=== PATIENT | female | born 1950 | race Caucasian/White ===

== ENCOUNTER → 2019-05-25 09:00 | Outpatient (BNVA) | payer MEDICARE, MEDICAID, SELFPAY | PROVIDERS: Family Provider Nurse Practitioner; PCP Nurse Practitioner; Visit Provider Nurse Practitioner | DX: R10.9 Unspecified abdominal pain (principal); I10 Essential (primary) hypertension; R50.9 Fever, unspecified; M79.7 Fibromyalgia; E78.2 Mixed hyperlipidemia; N39.0 Urinary tract infection, site not specified | CPT/HCPCS: 80053; 81001; 85025; 87086; 87804 ==

== ENCOUNTER 2019-10-14 19:13 | Emergency (ER) | payer MEDICARE, MEDICAID, SELFPAY ==
[2019-10-14 19:57] VITALS: BP 140/83; PULSE 67; RESP 18; TEMP 36.8; O2SAT 95; BMI 37.8
--- NOTE | 2019-10-14 21:48 | XRR_ITS ---
PROCEDURE INFORMATION: Exam: XR Left Wrist Exam date and time: 10/14/2019 10:02 PM Age: 69 years old Clinical indication: Injury or trauma; Fall; Initial encounter; Blunt trauma (contusions or hematomas; Wrist; Bilateral TECHNIQUE: Imaging protocol: XR Left wrist. Views: 3 or more views. COMPARISON: No relevant prior studies available. FINDINGS: Bones/joints: Osteoporosis. Scapholunate disassociation. Impacted comminuted intra-articular fracture of the distal left radius. Mild volar angulation. Dorsal and radial displacement of the radial styloid component of the fracture. Ulnar styloid avulsion fracture. Soft tissues: Soft tissue swelling. XR/XR wrist LT min 3V* [id number] IMPRESSION: 1. Impacted comminuted intra-articular fracture of the distal left radius. 2. Ulnar styloid avulsion fracture. 3. Scapholunate disassociation. 4. Osteoporosis.
--- NOTE | 2019-10-14 21:50 | ED_ITS ---
HPI - Extremity Problem General: Chief complaint: Extremity Injury, Upper Stated complaint: LEFT WRIST PAIN/FALL Time Seen by Provider: 10/14/19 21:48 Source: patient Mode of arrival: ambulatory Limitations: no limitations History of Present Illness: HPI Narrative: Patient was leaving the garage and missed a step while carrying packages. Patient landed catching self with outst retched left arm. Patient has distal left forearm pain. Mild deformity is noted to the left distal wrist area. MD Complaint: extremity pain Review of Systems General: Reports: 10 or more systems reviewed and unremarkable except in HPI and below Musc: Reports: extremity pain and extremity swelling [facility] ED PFSH: Medical History (Updated 10/14/19 @ 22:09 by SARAY Felder) Fibromyalgia Hypertension Mixed hyperlipidemia Situational anxiety Surgical History (Updated 05/25/19 @ 09:12 by MARCELLUS Samaniego) H/O: hysterectomy (~1984) History of cholecystectomy (~1986) History of hernia repair Family History (Updated 05/25/19 @ 09:14 by MARCELLUS Samaniego) Mother Dementia Sister Hypothyroid Brother Cancer colon and blood Social History (Updated 05/25/19 @ 08:40 by OVIDIO Sim) Smoking and tobacco status: former smoker Second hand smoke exposure: No Smoking risk assessment/counseling performed?: No Alcohol intake: never Desire information about alcohol rehabilitation?: No Counseling given: No Desire information about substance/drug rehabilitation?: No Counseling given: No Caregiver/support person: No Lives independently: Yes Household members: spouse Marital status: Current occupational status: retired History of recent travel: No Current gender identity: Female Physical Exam Const: COMMON NORMALS: no acute distress and patient oriented x3 GENERAL APPEARANCE: cooperative HENMT: COMMON NORMALS: normocephalic and Normal external nose present HEAD & SCALP: normal to inspection and normocephalic NOSE: Normal external nose present MOUTH: Normal oral and palatal mucosa present Eye: GENERAL EYE: appearance normal, both eyes and all related structures Neck/C-Spine: COMMON NORMALS: full ROM Chest: COMMONS NORMALS: normal inspection of the chest Resp: COMMON NORMALS: normal respiratory effort EFFORT & INSPECTION: Yes able to speak in complete sentences Cardio: COMMON NORMALS: regular rate and regular rhythm RATE: regular rate RHYTHM: regular rhythm GI: COMMON NORMALS: non-tender Back/Pelvis: COMMON NORMALS: thoracic and lumbar spine normal to inspection Extremity: NARRATIVE EXTREMITY EXAM: Patient has mild deformity to the distal forearm and left wrist. Pulses are intact. Prompt capillary refill is noted. Patient has good range of motion of the fingers of the left hand. Patient has good sensation in the distal fingertips. Neuro: COMMON NORMALS: patient oriented x3 and moves all extremities Psych: COMMON NORMALS: mental status grossly normal and cooperative Skin: COMMON NORMALS: no rashes or lesions noted GENERAL SKIN EXAM: no rashes or lesions noted Procedures Orthopedic Splinting/Casting Injury #1: Side: left Upper Extremity Injury Location: wrist Upper Extremity Immobilizer: sling/shoulder immobilizer and sugar tong splint Course Vital Signs: Vital signs: Vital Signs Temperature 98.3 F 10/14/19 19:57 Pulse Rate 67 10/14/19 19:57 Respiratory Rate 18 10/14/19 19:57 Blood Pressure 140/83 10/14/19 19:57 Pulse Oximetry 95 10/14/19 19:57 MDM - Extremity (Nontraumatic) MDM Narrative: Medical decision making narrative: Patient comes in today for complaints of injury to the left wrist. On exam we note deformity to the distal forearm of the rest upper extremity. Pulses are intact. Skin is warm and dry. Prompt capillary refill is been noted. Vital signs are normal. Differential diagnosis includes contusion, fracture, sprain. X-ray notes a comminuted distal radial fracture and a fracture of the ulnar styloid. Reviewed exam recommended patient be placed in a sugar tong splint for stabilization of the fracture with follow-up with orthopedics for further evaluation and treatment. Patient reports understanding agreed to plan. Discharge Plan Discharge Patient Disposition: Home, Self-Care Clinical Impression: Fracture of wrist Qualifiers: Encounter type: initial encounter Fracture type: closed Laterality: left Qualified Code(s): S62.102A - Fracture of unspecified carpal bone, left wrist, initial encounter for closed fracture Condition: Stable Prescriptions: New hydrocodone-acetaminophen 5-325 mg tablet 1 tab PO Q6H PRN (Reason: pain, severe) Qty: 14 RF: 0 No Action aspirin [Adult Aspirin Regimen] 81 mg tablet,delayed release (DR/EC) 81 mg PO DAILY RF: 0 furosemide 20 mg tablet 20 mg PO BID PRN (Reason: edema) Qty: 180 RF: 1 magnesium oxide 400 mg magnesium capsule 400 mg PO BID Qty: 180 RF: 1 metoprolol succinate 50 mg tablet extended release 24 hr 50 mg PO DAILY Qty: 90 RF: 1 potassium chloride 10 mEq tablet extended release 10 meq PO DAILY Qty: 90 RF: 1 tizanidine 2 mg capsule 2 mg PO .QHS PRN (Reason: muscle spasticity) Qty: 90 RF: 1 tramadol 50 mg tablet 50 mg PO Q6H PRN (Reason: pain) Qty: 90 RF: 5 simvastatin [Zocor] 20 mg tablet 20 mg PO DAILY Qty: 90 RF: 1 cephalexin [Keflex] 500 mg capsule 500 mg PO TID Qty: 30 RF: 0 Referrals: Rica Maddox FNP-C [Primary Care Provider] - Discharge Diet: Usual diet Discharge Activity: Increase activity as tolerated Patient Instructions: Splint Care (ED) Activity Restrictions/Additional Instructions: Keep splint clean and dry. Leave splint in place. Use sling for comfort. Follow-up with primary care in 1 week. Follow-up with orthopedist for further treatment and management of fracture. Return to the ER for worsening pain or new concerns. Discharge Date/Time: 10/14/19 22:51 Coding Level of Care Code ED Residential [employer] Executive for Hilda Gutiérrez Exam Comprehensive
[2019-10-14] MEDS: HYDROcodone-acetaminophen 7.5-325 mg Tablet 1 TAB PO (22:00)
== END 2019-10-14 22:51 | disposition home or self-care (01) ==
PROVIDERS: Emergency Provider Nurse Practitioner Family; PCP Nurse Practitioner
DX: S52.572A Other intraarticular fracture of lower end of left radius, initial encounter for closed fracture (principal); S52.612A Displaced fracture of left ulna styloid process, initial encounter for closed fracture; W01.0XXA Fall on same level from slipping, tripping and stumbling without subsequent striking against object, initial encounter; I10 Essential (primary) hypertension; E78.2 Mixed hyperlipidemia; Z87.891 Personal history of nicotine dependence
CPT/HCPCS: 12345; 29125; 73110; 99281; 99283

== ENCOUNTER 2019-10-18 14:22 | Outpatient (CLI) | payer MEDICARE, MEDICAID, SELFPAY | END 2019-10-18 14:23 | disposition home or self-care (01) | LOC: SPT 14:24 | PROVIDERS: PCP Nurse Practitioner; Visit Provider Orthopaedic Surgery | DX: Z46.89 Encounter for fitting and adjustment of other specified devices (principal); S52.592D Other fractures of lower end of left radius, subsequent encounter for closed fracture with routine healing; X58.XXXD Exposure to other specified factors, subsequent encounter | CPT/HCPCS: 97760; L3908 ==

== ENCOUNTER 2019-10-19 13:09 | Day surgery (SDC) | payer MEDICARE, MEDICAID, SELFPAY ==
[2019-10-18 15:23] VITALS: BMI 37.5
[2019-10-19] VITALS (8 sets, daily range): BP systolic 107–153; BP diastolic 66–94; PULSE 59–65; RESP 15–20; TEMP 36.8; O2SAT 95–99
--- NOTE | 2019-10-19 | SCC_ITS ---
Procedure Done: Open reduction internal fixation left distal radius, 3 articular fragments 109.8 seconds of fluoroscopic guidance, for a cumulative dose of 1.73 mGy, was provided to Dr. Jennings by the radiology department. C-arm images of the LEFT wrist were saved for the patient's permanent record. [facility]
--- NOTE | 2019-10-19 | XR_ITS ---
WS: [id number] C-ARM RADIOGRAPHS LEFT WRIST; 3 IMAGES HISTORY: ORIF LT WRIST MAREK IMAGES COMPARISON: 10/14/2011 Intraoperative imaging during plate and screw fixation distal radial fracture. Reduction of the fract ure displacement in good alignment. XR/XR wrist LT 2V [id number] IMPRESSION: Intraoperative imaging during ORIF distal radial fracture in good position and alignment.
--- NOTE | 2019-10-19 13:43 | W.PM.OPSUD ---
Surgery/Procedure H&P Update DATE OF PROCEDURE: October 19, 2019 DATE H&P PERFORMED: 10/18/19 PREOP DIAGNOSIS: Left distal radius PLANNED PROCEDURE: Operation Date: 10/19/19 14:40 Proposed Procedures p ORIF Wrist [id number] S52.502A(Left) - Gurwinder Jennings MD
[2019-10-19] MEDS: sodium chloride 0.9% 1,000 ML 30 ML IV (13:58)
[2019-10-19] MEDS: fentaNYL 50 mcg/mL INJ 2mL 100 MCG IVP (14:13)
[2019-10-19] MEDS: midazolam 1 mg/mL INJ 2 mL 2 MG IVP (14:15)
--- NOTE | 2019-10-19 14:24 | ANES.PREANE2 ---
Pre-Anesthetic Assessment Pre-Anesthetic Assessment: Height/Weight: Height 1.63 m Weight 99.337 kg Temp Pulse Resp BP Pulse Ox 98.3 F 60 18 141/83 95 10/19/19 13:40 10/19/19 13:40 10/19/19 13:40 10/19/19 13:40 10/19/19 13:40 Preop Diagnosis: Left distal radius Proposed Procedure: Operation Date: 10/19/19 14:40 Proposed Procedures p ORIF Wrist 21775 S52.502A(Left) - Gurwinder Jennings MD Social: Social History: Tobacco (quit) and No alcohol Exam: Pre-Anes Outpt Exam: alert, oriented x 3, clear to auscultation bilaterally and regular rate & rhythm Airway: Submandibular: WNL Cervical ROM: WNL MP: 2 Dentition: Partials (upper) History/ROS: No significant history except as noted Pulmonary: Pulmonary: None reported CV/HEM: CV/HEM: HTN : : None reported Hepatic: Hepatic: None reported GI: GI: None reported Metabolic: Metabolic: Hyperlipidemia and Morbid obesity Musc/skel: Musc/skel: Fibromyalgia Neuropsych: Neuropsych: Anxiety and Depression Anesthetic Plan: ASA status: 2 Anesthesia: Anesthesia Evaluation, Eval. for regional block, General, MAC and Regional (specify below) (left axillary) Risk of > 500 ml blood loss (7ml/kg in children): No Meds/Allergies Current Medications: Current Medications Generic Name Dose Route Start Last Admin Trade Name Freq PRN Reason Stop Dose Admin Sodium Chloride 1,000 mls @ 30 ml s/hr 10/19/19 10:00 10/19/19 13:58 Sodium Chloride 0.9% IV 10/20/19 09:59 30 mls/hr .Q24H NAI Administration PFSH Anesthesia PFSH: Medical History Fibromyalgia Hypertension Mixed hyperlipidemia Situational anxiety Surgical History H/O: hysterectomy (~1984) History of cholecystectomy (~1986) History of hernia repair Family History Mother Dementia Sister Hypothyroid Brother Cancer colon and blood Social History Smoking and tobacco status: former smoker Second hand smoke exposure: No Smoking risk assessment/counseling performed?: No Alcohol intake: never Desire information about alcohol rehabilitation?: No Counseling given: No Desire information about substance/drug rehabilitation?: No Counseling given: No Caregiver/support person: No Lives independently: Yes Household members: spouse Marital status: Current occupational status: retired History of recent travel: No Current gender identity: Female Data Anesthesia Cardiac Studies: No Data to Display
--- NOTE | 2019-10-19 14:26 | ANES.PROC ---
Anesthesia Procedures Procedure/Date: 10/19/19 Nerve Block ^: Nerve Block 1: Main Anesthesia: general anesthesia Time Out Performed: Yes Consent: requested by attending/covering physician, risks and benefits reviewed and patient agrees to proceed Nerve block location: axillary (left) Anesthesia monitors applied: pulse oximetry, EKG, BP cuff and oxygen Nerve block position: semi sitting Anesthetic Used: ropivicaine 0.5% and with decadron (4 mg) Amount of anesthesia used (mL): 30 Ultrasound used to: recognize landmarks Nerve Stimulator Used?: Yes Interscalene/Femoral BLK: 2 stimuplex 22 g needle used for position and inplane approach, visualize local anesthetic spread and no vascular puncture identified Injection: neg aspiration of heme Patient Tolerated Procedure: well and no complications Complications: none
--- NOTE | 2019-10-19 17:30 | PM.OP ---
Operative Report Date of procedure: October 19, 2019 Pre-op Diagnosis: Left distal radius fracture Post-op diagnosis: same Post-op Findings: Patient had a comminuted intra-articular fracture of the left distal radius consisting of radial articular fragment Procedure Done: Open reduction internal fixation left distal radius, 3 articular fragments Implants: Irrigon Variax short standard distal radius plate Pathology: none sent Anesthesia: General and Nerve Block (Axillary) Estimated blood loss (mL): 20 IV fluids (mL): 51 Findings: Patient had a comminuted intra-articular fracture of the distal radius consisting of a volar and dorsal lunate facet fragment and a radial styloid fragment. Condition: stable Disposition: PACU Procedure: After the patient was given an axillary nerve block. She was taken to the operating room and given a general anesthesia. Under visualization of fluoroscopy, longitudinal traction was applied to get a better appreciation of anatomy. The fracture appeared to consist of 3 fragments of a dorsal and volar lunate facet fragment and a radial styloid fragment . the patient left arm was exposed on a fracture table the patient prepped and draped in the usual fashion. She was given 2 g of Ancef. A timeout was performed. A 5 cm long incision was made along over the flexor carpi radialis tendon. Dissection was carried down through the tendon sheath. Dissection was carried down bluntly to the pronator quadratus. The pronator quadratus was elevated off of the distal radius leaving a cuff for later repair. Closed reduction was accomplished of the distal radius. A Irrigon Variax 100 sure plate was applied and provided adequate coverage to ensure screws into the radial styloid. Initial application of the plate gave incomplete control of the volar lunate facet fragment. To 0.8 mm K wires were driven across the teardrop on the lateral projection and used to joystick the teardrop into a more anatomical position correcting depression of the lunate facet. Once it was found that this could be accomplished the K wires were bent flush the distal radius and placed beneath the plate. The plate was fixed distally with 5 locking screws and proximally with 3 bicortical screws. Intraoperative imaging showed excellent position of the hardware. The wound was irrigated with saline. The pronator quadratus was reapproximated with 2-0 Vicryl. Subcutaneous tissues were closed with 2-0 Vicryl. The skin was closed with skin tana. Sterile dressings were applied. The patient was taken to outpatient surgery in stable condition.
== END 2019-10-19 18:21 | disposition home or self-care (01) ==
PROVIDERS: Visit Provider Orthopaedic Surgery
PROC: (CPT 25609; principal; 2019-10-19 14:40)
DX: S52.572A Other intraarticular fracture of lower end of left radius, initial encounter for closed fracture (principal); W01.0XXA Fall on same level from slipping, tripping and stumbling without subsequent striking against object, initial encounter; Z87.891 Personal history of nicotine dependence; I10 Essential (primary) hypertension; E66.01 Morbid (severe) obesity due to excess calories; Z68.37 Body mass index [BMI] 37.0-37.9, adult; M79.7 Fibromyalgia; E78.2 Mixed hyperlipidemia; Z79.82 Long term (current) use of aspirin
CPT/HCPCS: 25609; 12345; 73100; 76000; 96374; 96375; C1713; J0690; J1100; J1580; J1885; J2250; J2795; J3010; J7030

== ENCOUNTER → 2019-12-05 10:20 | Outpatient (BNVA) | payer MEDICARE, MEDICAID, SELFPAY | PROVIDERS: Visit Provider Orthopaedic Surgery | DX: S52.572A Other intraarticular fracture of lower end of left radius, initial encounter for closed fracture (principal); M18.11 Unilateral primary osteoarthritis of first carpometacarpal joint, right hand; X58.XXXA Exposure to other specified factors, initial encounter | CPT/HCPCS: 73110 ==

== ENCOUNTER 2020-01-11 06:00 | Outpatient (RCR) | payer MEDICARE, MEDICAID, SELFPAY | END 2020-01-11 23:59 | disposition home or self-care (01) | LOC: TOT 06:00 | PROVIDERS: Referring Provider Orthopaedic Surgery; Visit Provider Orthopaedic Surgery | DX: Z47.89 Encounter for other orthopedic aftercare (principal); S52.502D Unspecified fracture of the lower end of left radius, subsequent encounter for closed fracture with routine healing; X58.XXXD Exposure to other specified factors, subsequent encounter | CPT/HCPCS: 97110; 97166 ==

== ENCOUNTER 2020-01-19 16:32 | Outpatient (RCR) | payer MEDICARE, MEDICAID, SELFPAY | END 2020-02-11 23:59 | disposition home or self-care (01) | LOC: TOT 16:32 | PROVIDERS: Referring Provider Orthopaedic Surgery; Visit Provider Orthopaedic Surgery | DX: Z47.89 Encounter for other orthopedic aftercare (principal); S52.502A Unspecified fracture of the lower end of left radius, initial encounter for closed fracture | CPT/HCPCS: 97018; 97110; 97530 ==

== ENCOUNTER → 2020-02-06 09:48 | Outpatient (BNVA) | payer MEDICARE, MEDICAID, SELFPAY | PROVIDERS: PCP Family Medicine; Visit Provider Orthopaedic Surgery | DX: S52.502A Unspecified fracture of the lower end of left radius, initial encounter for closed fracture (principal); Z48.89 Encounter for other specified surgical aftercare; X58.XXXA Exposure to other specified factors, initial encounter | CPT/HCPCS: 73110 ==

== ENCOUNTER → 2020-04-16 13:11 | Outpatient (BNVA) | payer MEDICARE, MEDICAID, SELFPAY | PROVIDERS: PCP Family Medicine; Visit Provider Nurse Practitioner Family | DX: Z20.828 Contact with and (suspected) exposure to other viral communicable diseases (principal); J06.9 Acute upper respiratory infection, unspecified | CPT/HCPCS: 87635 ==

== ENCOUNTER 2020-04-20 12:44 | Outpatient (CLI) | payer MEDICARE, MEDICAID, SELFPAY ==
[2020-04-20 13:02] VITALS: BP 134/73; PULSE 65; RESP 16; TEMP 36.6; O2SAT 97; BMI 36.6
--- NOTE | 2020-04-20 13:09 | AMB.MCA ---
Patient Information Referred by: Ranjit Symptom onset date: 04/13/20 COVID 19 common symptoms: positive cough, non-productive cough, fatigue and body aches COVID 19 other sytmptoms: negative chest pressure, chest pain, pleuritic pain, requiring oxygen, requiring more oxygen, respiratory distress, cyanosis, lethargy, confusion or new neurological complaints Severity: moderate Treatment prior to arrival: none [facility] COVID test results: Nasal/Oral Coronavirus 2019 PCR Detected H 04/16/20 13:11 04/16/20 Criteria/Plan Inclusion/Exclusion Criteria weight >/= 40kg, + direct test </= 10 days ago and symptom onset </= 10 days ago age >/= 65, age >/= 55 and has hypertension and age >/= 55 and has diabetes not requiring hospitalization, not requiring oxygen (if not chronically on oxygen) and no increase oxygen requirement (if chronically on oxygen) Patient education patient/caregiver received/reviewed fact sheet, Emergency Use Authorization/unapproved drug status discussed with patient/caregiver, alternatives to this treatment discussed with patient/caregiver, risks and benefits of medication reviewed with patient/caregiver, patient/caregiver given opportunity for questions, which were answered and patient/caregiver consents to receiving Monoclonal Antibody Treatment Plan for treatment Meets criteria for Monoclonal Antibody infusion Ordering Monoclonal Antibody infusion for today
[2020-04-20 13:41] VITALS: BP 116/69; PULSE 61; RESP 17; TEMP 36.7; O2SAT 96
[2020-04-20 14:13] VITALS: BP 108/62; PULSE 55; RESP 18; O2SAT 95
[2020-04-20 15:19] VITALS: BP 115/73; PULSE 58; RESP 18; TEMP 36.7; O2SAT 97
[2020-04-20 15:29] VITALS: BP 115/73; PULSE 58; RESP 18; TEMP 36.7; O2SAT 97
--- NOTE | 2020-04-20 15:30 | PC.NURSE ---
1525 iv discontinues, catheter intact. pt experienced no new symptoms and was escorted to private vehicle by nursing staff. no concerns or complaints at this time.
--- NOTE | 2020-04-26 14:59 | DCPLANNER ---
Addendum entered by Jessica Raymond 05/01/20 15:25: energy and sustainability manager called to check on patient after receiving the BAM infusion. Patient stated that she was doing good, can't think of any side effects that she had. Patient also stated that she has not been admitted to the hospital anywhere. Original Note: energy and sustainability manager had message that patient received the BAM infusion. energy and sustainability manager called to check on patient after getting the infusion. Patient stated that she is feeling a lot better. Stated that before the infusion that she had a cough, some congestion, and was real tired. After the infusion that she no longer has a cough, just a little tired. But overall she is feeling a lot better
== END 2020-04-20 15:25 | disposition home or self-care (01) ==
PROVIDERS: PCP Family Medicine; Visit Provider Nurse Practitioner Family
DX: U07.1 COVID-19 (principal)
CPT/HCPCS: 96365; J7050

== ENCOUNTER 2020-12-12 08:00 | Outpatient (CLI) | payer MEDICARE, SELFPAY ==
[2020-12-12 08:14] VITALS: BMI 39.4
--- NOTE | 2020-12-12 08:23 | ECG_ITS ---
[facility] Test Date: 2020-12-12 Pat Name: Etelvina Barnes Department: Room: Gender: Female Hand Rug Cleaner: : 1950 Requested By: Hortensia Aden Order Number: [id number] Nilson MD: Hortensia Aden M.D. Interpretive Statements NAME OF STUDY: LEXISCAN SESTAMIBI STRESS TEST INDICATION: Chest Pain PROCEDURE: At the baseline, the blood pressure was 116/75 mmHg, oxygen saturation 97 percent with a heart rate of 61 bpm. The electrocardiogram showed normal sinus rhythm, normal axis with nonspecific ST changes.. The Lexiscan was infused over a period of 20 seconds. A total of 0.4 milligrams of Lexiscan was infused. The stress phase was continued for a total of 5 minutes. Heart rate at the end of the stress phase was 89 bpm, oxygen saturation 98% with a blood pressure of 112/69 mmHg. The EKG at the peak infusion revealed sinus rhythm with no significant ST-T wave changes. The study was terminated due to protocol completion. Sestamibi was injected 20 seconds after the Lexiscan infusion. Blood pressure at the end of the recovery phase was 114/71 mmHg, oxygen saturation 99% with a heart rate of 79 beats per minute. CONCLUSION: 1. No significant EKG changes with the LexiScan infusion. 2. No LexiScan induced chest pain or cardiac arrhythmia. 3. Normal blood pressure and heart rate response. 4. Sestamibi/sestamibi perfusion scan pending; see separate report. Electronically Signed On 12-19-2020 12:53:38 CDT by Hortensia Aden M.D. [id number]
--- NOTE | 2020-12-12 08:23 | NMCV_ITS ---
NM lissett perf SPECT r/s* [id number] Etelvina Barnes Age: 70 Gender: F : 1950 Exam Date: 12/12/2020 09:19 Ordering Phys: Hortensia Aden MD ([email or web address]) Technologist: LEELEE Mariscal Exam Location: [facility] Indications: CHEST PAIN STRESS TEST Please see separate stress test report in [facility] for full findings IMAGE PROTOCOL Rest/Stress 1 Lexiscan Day Radiopharmaceutical Dose (mCi) Administration Site Administered by Rest: Tc-99m 11.0 IV LEELEE Mariscal Sestamibi Stress:Tc-99m 30.6 IV LEELEE Mariscal Sestamibi Rest: 12-Dec-2020 60 Discovery 630 Stress: 12-Dec-2020 30 Discovery 630 0.4mg Lexiscan. Supine position only as patient was unable to lay prone. SPECT RESULTS Technical Quality: Excellent Raw Data Analysis: Breast attenuation Image Corrections: No attenuation or motion correction applied Summed Stress Score: 0 Summed Rest Score: 2 Summed Difference Score: 0 PERFUSION FINDINGS Very small sized perfusion abnormality of mild severity of mid inferior wall with improved tracer uptake on stress images. This is suggestive of attenuation artifact. FUNCTIONAL RESULTS (calculated via Gated SPECT) Stress Image LV EF (%): 77 Stress EDV (mL):70 TID: 0.79 Stress ESV (mL):16 FUNCTIONAL FINDINGS: The left ventricle is normal in size. Transient Ischemia Dilatation of 0.79. There is normal left ventricular systolic function. The left ventricular ejection fraction is normal with a value of 77%. There is normal left ventricular wall thickening with no regional wall motion abnormality. Normal end diastolic and end systolic volumes. IMPRESSIONS 1. Myocardial perfusion imaging is normal. 2. Overall left ventricular systolic function is normal without regional wall motion abnormalities. 3. The left ventricular ejection fraction is normal with a value of 77%. 4. No coronary ischemia based on this study. Hortensia Aden MD (Electronically Signed) Final Date: 13 December 2020 21:27 S
[2020-12-12] MEDS: regadenoson 0.4 Mg/5 ml Syringe IVP (10:30)
[2020-12-12 10:45] VITALS: BP 114/71; PULSE 82
== END 2020-12-12 08:01 | disposition home or self-care (01) ==
PROVIDERS: PCP Family Medicine; Visit Provider Internal Medicine Cardiovascular Disease
DX: R07.9 Chest pain, unspecified (principal)
CPT/HCPCS: 78452; 93017; A9500; J2785

== ENCOUNTER → 2021-06-07 11:16 | Outpatient (BNVA) | payer MEDICARE, MEDICAID, SELFPAY | PROVIDERS: PCP Family Medicine; Visit Provider Psychiatry & Neurology Psychiatry | DX: F33.2 Major depressive disorder, recurrent severe without psychotic features (principal) | CPT/HCPCS: 90792 ==

== ENCOUNTER → 2021-07-11 09:02 | Outpatient (BNVA) | payer MEDICARE, MEDICAID, SELFPAY | PROVIDERS: PCP Family Medicine; Visit Provider Psychiatry & Neurology Psychiatry | DX: F33.2 Major depressive disorder, recurrent severe without psychotic features (principal) | CPT/HCPCS: 99214 ==

== ENCOUNTER → 2021-08-07 11:36 | Outpatient (BNVA) | payer MEDICARE, MEDICAID, SELFPAY | PROVIDERS: PCP Family Medicine; Visit Provider Internal Medicine Cardiovascular Disease | DX: I25.10 Atherosclerotic heart disease of native coronary artery without angina pectoris (principal); I10 Essential (primary) hypertension; Z87.891 Personal history of nicotine dependence; I71.4 Abdominal aortic aneurysm, without rupture | CPT/HCPCS: 99214 ==

== ENCOUNTER 2021-11-04 08:04 | Outpatient (CLI) | payer MEDICARE, MEDICAID, SELFPAY ==
--- NOTE | 2021-11-04 08:30 | CT_ITS ---
WS: [id number] CT ANGIOGRAPHY OF THE ABDOMINAL AORTA WITH RUNOFF TO THE ANKLES HISTORY: AAA TECHNIQUE: Arterial injection is performed during imaging to evaluate the aorta and runoff vessels to the ankles. MIP and volume rendering imaging has also been performed. All images are reviewed. All C T scans at [facility] use at least one of these dose optimization techniques: automated exposu re control; mA and/or kV adjustment per patient size (includes targeted exams where dose is matched t o clinical indication); or iterative reconstruction. Contrast: Omnipaque 350; 95 mL IV. DLP: 1484.85 mGy.cm COMPARISON: 07/14/2014 Lung bases are clear. Normal size heart. Small hiatal hernia. Abdominal aorta: Mild atherosclerotic plaque with no aneurysm or occlusion. Origins of the mesenteric artery and celiac axis are patent. No renal artery stenosis. NIRAJ is patent. RIGHT lower extremity arterial system: Common, internal and external iliac arteries are patent. RIGHT femoral, SFA, profunda and popliteal artery are patent. Tibioperoneal trunk is patent. Good runoff t o the ankle via all 3 vessels. LEFT lower extremity system: Common, internal and external iliac arteries are patent. No high-grade s tenosis. Femoral, SFA, profunda and popliteal arteries are normal. Tibioperoneal trunk intact. Good r unoff to the ankles via all 3 vessels. Arterial imaging through the liver, spleen, pancreas, adrenals and kidneys is negative. Prior cholecy stectomy. No adenopathy or ascites. Normal GI tract. Ventral abdominal wall hernia contains fat. Ther e are multiple small hernias along the ventral abdominal wall. All of these contain fat. Sigmoid dive rticulosis without acute diverticulitis. Increase in the lumbar lordosis. Scoliosis lumbar spine. No destructive bone lesions. CT/CT angio abd aorta runof [id number] IMPRESSION: 1. No significant abdominal aortic aneurysm or stenosis. 2. Very minimal atherosclerotic plaque within the abdominal aorta and iliac ar teries. 3. Three-vessel runoff to the ankles is satisfactory. No high-grade stenosis. 4. Multiple small ventral abdominal wall hernias containing fat only.
[2021-11-04 09:32] LABS: Blood Urea Nitrogen 22 mg/dL (8-23)
[2021-11-04] MEDS: iohexol 350 mg/mL 100 mL Btl IV (10:02)
== END 2021-11-04 08:05 | disposition home or self-care (01) ==
LOC: RAD 08:09
PROVIDERS: PCP Family Medicine; Visit Provider Internal Medicine Cardiovascular Disease
DX: I71.4 Abdominal aortic aneurysm, without rupture (principal); I70.0 Atherosclerosis of aorta; K43.9 Ventral hernia without obstruction or gangrene
CPT/HCPCS: 75635; 82565; 84520

== ENCOUNTER → 2022-01-30 12:18 | Outpatient (BNVA) | payer MEDICARE, MEDICAID, SELFPAY | PROVIDERS: PCP Family Medicine; Visit Provider Family Medicine | DX: J06.9 Acute upper respiratory infection, unspecified (principal); E78.2 Mixed hyperlipidemia; I10 Essential (primary) hypertension; G47.00 Insomnia, unspecified; F41.9 Anxiety disorder, unspecified; F32.9 Major depressive disorder, single episode, unspecified | CPT/HCPCS: 80053; 80061 ==

== ENCOUNTER → 2022-02-06 13:44 | Outpatient (BNVA) | payer MEDICARE, MEDICAID, SELFPAY | PROVIDERS: PCP Family Medicine; Visit Provider Internal Medicine Cardiovascular Disease | DX: I25.10 Atherosclerotic heart disease of native coronary artery without angina pectoris (principal); I10 Essential (primary) hypertension; Z87.891 Personal history of nicotine dependence | CPT/HCPCS: 99214 ==

== ENCOUNTER → 2022-02-13 14:00 | Outpatient (BNVA) | payer MEDICARE, MEDICAID, SELFPAY | PROVIDERS: PCP Family Medicine; Visit Provider Obstetrics & Gynecology | DX: R39.9 Unspecified symptoms and signs involving the genitourinary system (principal); R35.0 Frequency of micturition | CPT/HCPCS: 81000; 87086 ==

== ENCOUNTER → 2022-11-11 14:21 | Outpatient (BNVA) | payer MEDICARE, SELFPAY | PROVIDERS: PCP Family Medicine; Visit Provider Family Medicine | DX: I10 Essential (primary) hypertension (principal); E78.2 Mixed hyperlipidemia; I71.40 Abdominal aortic aneurysm, without rupture, unspecified | CPT/HCPCS: 80053; 80061 ==

== ENCOUNTER 2023-02-17 10:57 | Observation (INO) | payer MEDICARE, MEDICAID, SELFPAY ==
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
[2023-02-17] VITALS (16 sets, daily range): BP systolic 99–140; BP diastolic 60–87; PULSE 60–79; RESP 16–30; TEMP 36.2–36.7; O2SAT 90–96; BMI 38.9
--- NOTE | 2023-02-17 08:47 | P.ANESUD_ITS ---
Pre-Anesthetic Update Pre-Anesthetic Assessment: Date of Surgery/Procedure: 02/17/23 Preop Shruthi gnosis: Vaginal vault prolapse Proposed Procedure: Operation Date: 02/17/23 09:30 Proposed Procedures p Anterior Repair Anterior Colporrhaphy(Not Applicable) - Alexys Joseph MD s Posterior Repair Posterior Colporrhaphy(Not Applicable) - Alexys Joseph MD s Sling Single Incision Sling(Not Applicable) - Alexys Joseph MD s Anterior colporrhaphy with augmented allograft, posterior colporrhaphy 28033, single incision sling 09158, sacrospinous fixation 08954, N81.10(Not Applicable) - Alexys Joseph MD Any changes to Pre-Anesthetic Assessment?: No Last Intake: Intake Last Liquid Date 02/16/23 Last Liquid Time 21:00 Last Solid Date 02/16/23 Last Solid Time 18:00 Vitals: Temperature 98.1 F 02/17/23 08:28 Temperature Source Temporal Artery S can 02/17/23 08:28 Pulse Rate 60 02/17/23 08:28 Pulse Rhythm Regular 02/17/23 08:32 Pulse Strength 3+ Normal 02/17/23 08:32 Respiratory Rate 16 02/17/23 08:28 Blood Pressure 139/87 02/17/23 08:28 Blood Pressure Heavenly n 104 02/17/23 08:28 Pulse Oximetry 96 02/17/23 08:28 Oxygen Delivery Me thod Room Air 02/17/23 08:32 Exam: Pre-Anes Outpt Exam: alert, oriented x 3, clear to auscultation bilaterally and regular rate & rhythm Cardiac Studies: Sestamibi Stress Test (Cardiology) 12/12
[2023-02-17 08:57] LABS: Bilirubin Urine Neg (Negative); Blood Urine Neg (Negative); Glucose Urine UA Norm (Normal); Ketones Urine Negative (Negative); Leukocyte Esterase Urine 2+ (Negative); Nitrate Urine Negative (Negative); Protein Urine Neg (Negative); Specific Gravity, Urine 1.015 (1.005-1.030); Urine Appearance Cloudy (CLEAR); Urine Color Yellow (Yellow); Urobilinogen Urine Norm (Negative); pH Urine 6 (5-7)
[2023-02-17 08:58] LABS: Add Urine Microscopic? YES
--- NOTE | 2023-02-17 09:07 | W.PM.OPSUD ---
Surgery/Procedure H&P Update DATE OF PROCEDURE: February 17, 2023 DATE H&P PERFORMED: 02/09/23 H&P UPDATE INFORMATION: I have reviewed H&P completed within last 30 days, I have examined patient prior to procedure and No changes to prior documentation PREOP DIAGNOSIS: Vaginal vault prolapse PLANNED PROCEDURE: Operation Date: 02/17/23 09:30 Proposed Procedures p Anterior Repair Anterior Colporrhaphy(Not Applicable) - Alexys Joseph MD s Posterior Repair Posterior Colporrhaphy(Not Applicable) - Alexys Joseph MD s Sling Single Incision Sling(Not Applicable) - Alexys Joseph MD s Anterior colporrhaphy with augmented allograft, posterior colporrhaphy 26235, single incision sling 60458, sacrospinous fixation 49327, N81.10(Not Applicable) - Alexys Joseph MD
[2023-02-17 09:08] LABS: Add Urine Culture? Yes; Bacteria Urine 2+ /hpf; Hyaline Casts Urine RARE /lpf; RBC Urine 0-4 /hpf (0-2); WBC Urine 15-25 /hpf (0-5)
--- NOTE | 2023-02-17 09:09 | W.PM.OPSUD ---
Surgery/Procedure H&P Update DATE OF PROCEDURE: February 17, 2023 DATE H&P PERFORMED: 02/09/23 H&P UPDATE INFORMATION: I have reviewed H&P completed within last 30 days, I have examined patient prior to procedure and No changes to prior documentation PREOP DIAGNOSIS: Vaginal vault prolapse PLANNED PROCEDURE: Operation Date: 02/17/23 09:30 Proposed Procedures p Anterior Repair Anterior Colporrhaphy(Not Applicable) - Alexys Joseph MD s Posterior Repair Posterior Colporrhaphy(Not Applicable) - Alexys Joseph MD s Sling Single Incision Sling(Not Applicable) - Alexys Joseph MD s Anterior colporrhaphy with augmented allograft, posterior colporrhaphy 79848, single incision sling 78407, sacrospinous fixation 35196, N81.10(Not Applicable) - Alexys Joseph MD
[2023-02-17] MEDS: sodium chloride 0.9% 1,000 ML 30 ML IV (09:16)
[2023-02-17] MEDS: enoxaparin 30 mg/0.3 mL Syringe SUBCUT (09:19)
[2023-02-17] MEDS: scopolamine 1.5 Patch 1 PATCH TRANSDERMA (09:19)
[2023-02-17] MEDS: ceFAZolin 2,000 MG in sodium chloride 0.9% (plus) 50 ML 100 MG IV (09:23)
[2023-02-17 09:28] LABS: Basophils % 0.6 %; Eosinophils # 0.3 10^3/uL (0.0-0.8); Eosinophils % 3.7 %; Hematocrit 46.1 % (36-47); Lymphocytes # 1.8 10^3/uL (0.8-4.8); Lymphocytes % 25.4 %; Mean Corpuscular HGB Conc 31.7 g/dL (30-55); Mean Corpuscular Hemoglobin 27.5 pg (27-33); Mean Platelet Volume 9.1 fL (7.4-10.4); Monocytes # 0.6 10^3/uL (0.2-0.9); Monocytes % 8.6 %; Neutrophils # 4.37 10^3/uL (1.8-7.7); Neutrophils % 61.6 %; Nucleated Red Blood Cells % 0 %; Platelet Count 242 10^3/cmm (157-399); Red Cell Distribution Width 13.3 % (12.1-15.1); White Blood Count 7.09 10^3/uL (3.29-11.43)
[2023-02-17 09:53] LABS: Alanine Aminotransferase 9 U/L (0-33); Albumin Level 4.7 g/dL (3.5-5.2); Alkaline Phosphatase 90 U/L (35-105); Anion Gap 14.9 (5-19); Aspartate Amino Transferase 27 U/L (0-32); Blood Urea Nitrogen 19 mg/dL (8-23); Calcium 9.4 mg/dL (8.5-10.5); Carbon Dioxide 30 mmol/L (22-29); Chloride 101 mmol/L (98-107); Globulin 3.2 g/dL (1.3-4.6); Glucose 94 mg/dL (65-115); Osmolality Calculated 294 mOsm/kg (285-295); Potassium 4.9 mmol/L (3.5-5.1); Sodium 141 mmol/L (136-145); Total Bilirubin 0.5 mg/dL (0.15-1.2); Total Protein 7.9 g/dL (6.6-8.7)
[2023-02-17] MEDS: lidocaine-epi 2% 20 mL INJ INJECTION (10:21)
--- NOTE | 2023-02-17 10:56 | PM.OP ---
Operative Report Date of procedure: February 17, 2023 Pre-op diagnosis: Vaginal prolapse Post-op diagnosis: Rectocele stage III Post-op findings: Rectocele Procedure done: Posterior colporrhaphy Implants: None Specimens removed/disposition: None Surgeon: Alexys Joseph MD Estimated blood loss (mL): 20 IV fluids (mL): 900 Urine output (mL): 100 Complications: None Procedure: After obtaining informed consent, the patient was taken to the operating room and placed in the supine position, given general anesthesia, and prepped and draped in sterile fashion. The abdomen, vulva and vagina were prepped and draped in a sterile manner. A time out procedure was performed. Pelvic exam under anesthesia sterile adequate bladder and urethral support with a significant stage III rectocele. Decision was made to proceed with only the posterior colporrhaphy at this time. The vaginal mucosa was then injected in the midline with normal saline. The vaginal mucosa was scored in the midline with the Bovie approximately 1 cm medial to the urethral meatus to 1 cm distal to the vaginal cuff. This vaginal mucosa was then undermined and then incised in the midline with the Metzenbaum scissors. The lateral aspects of the vaginal mucosa were then grasped with the Allis clamps and the vaginal mucosa was then dissected off the underlying fascia with the Metzenbaum scissors. A posterior repair was performed next. An incision was made across the introitus. Metzenbaum scissors were used to tunnel beneath posterior vaginal mucosa until the apex of the rectocele bulge was reached. At this point, the rectum was from the posterior vaginal mucosa using sharp and blunt dissection, and the rectal bulge imbricated in the midline with interrupted sutures of 2-0 vicryl suture. Levator ani muscles on either side were approximated in the midline with interrupted 0 Vicryl sutures. Excess posterior vaginal mucosa was excised, and the vaginal episiotomy was repaired by approximating the posterior vaginal mucosa with a suture of Vicryl #0. Excellent hemostasis was obtained. Sponge, lap, needle, and instrument counts were correct times three. The patient was taken to the recovery room, awake and in stable condition.
[2023-02-17] MEDS: dextrose 5%-lactated ringers 1,000 ML 125 ML IV ×2 (12:02→20:12)
[2023-02-17] MEDS: ketorolac 30 mg/mL INJ IVP ×2 (12:04→18:15)
--- NOTE | 2023-02-17 12:53 | ANE.PACU2 ---
Inpatient post-anesthesia follow up: Airway intact: Yes Vital signs: Temperature 97.6 F Pulse Rate 62 Respiratory Rate 17 Blood Pressure 112/67 Pulse Oximetry 92 Oxygen Delivery Me thod Room Air Oxygen Flow Rate 3 Fraction of Inspir ed Oxygen Hydration adequate: Yes Nausea and vomiting: No Pain level: 2 Mental status: Baseline
[2023-02-17] MEDS: FUROsemide 40 mg Tablet PO (18:15)
[2023-02-17] MEDS: docusate sodium 100 mg Capsule PO (18:15)
[2023-02-17] MEDS: HYDROcodone-acetaminophen 5-325 mg Tablet PO (20:11)
[2023-02-18] MEDS: ketorolac 30 mg/mL INJ IVP (00:11)
[2023-02-18 05:42] VITALS: BP 118/67; PULSE 66; RESP 16; TEMP 36.6; O2SAT 94
[2023-02-18 05:44] LABS: Hematocrit 36.6 % (36-47); Mean Corpuscular HGB Conc 31.7 g/dL (30-55); Mean Corpuscular Hemoglobin 27.6 pg (27-33); Mean Corpuscular Volume 87.1 fl (85-98); Mean Platelet Volume 8.9 fL (7.4-10.4); Platelet Count 190 10^3/cmm (157-399); Red Cell Distribution Width 13.2 % (12.1-15.1)
--- NOTE | 2023-02-18 06:31 | PC.NURSE ---
Urine output 350mls, bladder retaining 50mls.
--- NOTE | 2023-02-18 09:43 | P.DS_ITS ---
Discharge Providers [employer] Date of Admission: 02/17/23 10:57 Date of Discharge: 02/18/23 Attending Provider at Admission: Alexys Joseph MD Attending Provider at Discharge: Alexys Joseph MD Primary Care Provider: George Liao MD Reason for Visit Reason for Visit: N81.10 Hospital Course Hospital Course Mrs. Crain 72-year-old female with vaginal prolapse. Admitted for planned anterior colporrhaphy single incision mid urethral sling posterior colporrhaphy and sacrospinous fixation. During pelvic exam under anesthesia patient was noted to only needing a posterior colporrhaphy. The posterior colporrhaphy was performed without complications. Overnight observation was uneventful. She is afebrile and hemodynamically stable postoperative day 1. Tolerating diet well. Ambulating without difficulty. She was counseled regarding no heavy lifting greater than 10 pounds and pelvic rest for 6 weeks (no sex, no tampons, no vaginal douches). Return to the emergency room if any fever, increased bleeding or pain. Physical Exam Narrative: GA: Alert and oriented ?3. HEENT: WNL. Heart: Regular rate and rhythm. Lungs: Clear to auscultation bilaterally. Abdomen: Bowel sounds present, nontender. [employer]: Spotting bleeding. Extremities: No edema, no cyanosis, no calves pain. Urinary Catheter Management: Motley: Cath Placed During This Visit: yes, but has since been removed by the nurse Reason for Continuing Indwelling Catheter: Decision to DC Catheter Urinary Catheter Date of Insertion: 02/17/23 Urinary Catheter Time of Insertion: 09:55 Date Urinary Catheter Removed: 02/17/23 Time Urinary Catheter Discontinued: 17:23 History History History 2 Term 1 1 Miscarriages/Ectopic 0 Living Children 1 Discharge Data Studies Completed and Pending Pending at discharge Category Date Time Status Urine Culture Routine Lab 02/17/23 08:40 Received Laboratory Results WBC 13.00 10^3/uL (3.29-11.43) H 02/18/23 05:37 RBC 4.20 10^6/uL (3.85-5.65) 02/18/23 05:37 Hgb 11.60 g/dL (11.27-16.99) 02/18/23 05:37 Hct 36.6 % (36-47) 02/18/23 05:37 MCV 87.1 fl (85-98) 02/18/23 05:37 MCH 27.6 pg (27-33) 02/18/23 05:37 MCHC 31.7 g/dL (30-55) 02/18/23 05:37 RDW 13.2 % (12.1-15.1) 02/18/23 05:37 Plt Count 190 10^3/cmm (157-399) 02/18/23 05:37 MPV 8.9 fL (7.4-10.4) 02/18/23 05:37 Neut % (Auto) 61.6 % 02/17/23 09:00 Lymph % (Auto) 25.4 % 02/17/23 09:00 [place] % (Auto) 8.6 % 02/17/23 09:00 Eos % (Auto) 3.7 % 02/17/23 09:00 Baso % (Auto) 0.6 % 02/17/23 09:00 Neut # (Auto) 4.37 10^3/uL (1.8-7.7) 02/17/23 09:00 Lymph # (Auto) 1.8 10^3/uL (0.8-4.8) 02/17/23 09:00 [place] # (Auto) 0.6 10^3/uL (0.2-0.9) 02/17/23 09:00 Eos # (Auto) 0.3 10^3/uL (0.0-0.8) 02/17/23 09:00 Baso # (Auto) 0.0 10^3/uL (0.0-0.1) 02/17/23 09:00 Nucleated RBC % (auto) 0 % 02/17/23 09:00 Nucleated RBCs # 0.0 /100WBC 02/17/23 09:00 Sodium 141 mmol/L (136-145) 02/17/23 09:00 Potassium 4.9 mmol/L (3.5-5.1) 02/17/23 09:00 Chloride 101 mmol/L (98-107) 02/17/23 09:00 Carbon Dioxide 30 mmol/L (22-29) H 02/17/23 09:00 Anion Gap 14.9 (5-19) 02/17/23 09:00 BUN 19 mg/dL (8-23) 02/17/23 09:00 Creatinine 0.8 mg/dL (0.5-0.9) 02/17/23 09:00 GFR Calculation Not Reportable 02/17/23 09:00 Glucose 94 mg/dL (65-115) 02/17/23 09:00 Calculated Osmolality 294 mOsm/kg (285-295) 02/17/23 09:00 Calcium 9.4 mg/dL (8.5-10.5) 02/17/23 09:00 Total Bilirubin 0.5 mg/dL (0.15-1.2) 02/17/23 09:00 AST 27 U/L (0-32) 02/17/23 09:00 ALT 9 U/L (0-33) 02/17/23 09:00 Alkaline Phosphatase 90 U/L (35-105) 02/17/23 09:00 Total Protein 7.9 g/dL (6.6-8.7) 02/17/23 09:00 Albumin 4.7 g/dL (3.5-5.2) 02/17/23 09:00 Globulin 3.2 g/dL (1.3-4.6) 02/17/23 09:00 Urine Color Yellow (Yellow) 02/17/23 08:40 Urine Appearance Cloudy (CLEAR) A 02/17/23 08:40 Urine pH 6 (5-7) 02/17/23 08:40 Ur Specific [place] 1.015 (1.005-1.030) 02/17/23 08:40 Urine Protein Neg (Negative) 02/17/23 08:40 Urine Glucose (UA) Norm (Normal) 02/17/23 08:40 Urine Ketones Negative (Negative) 02/17/23 08:40 Urine Blood Neg (Negative) 02/17/23 08:40 Urine Nitrate Negative (Negative) 02/17/23 08:40 Urine Bilirubin Neg (Negative) 02/17/23 08:40 Urine Urobilinogen Norm mg/dL (Negative) 02/17/23 08:40 Ur Leukocyte Esterase 2+ (Negative) H 02/17/23 08:40 Urine RBC 0-4 /hpf (0-2) H 02/17/23 08:40 Urine WBC 15-25 /hpf (0-5) H 02/17/23 08:40 Ur Squamous Epith Cells 5-10 /hpf (0-5) H 02/17/23 08:40 Amorphous Sediment Not Reportable 02/17/23 08:40 Urine Bacteria 2+ /hpf (NONE) H 02/17/23 08:40 Hyaline Casts Rare /lpf 02/17/23 08:40 Urine Mucus None /hpf 02/17/23 08:40 Blood Type A Positive 02/17/23 09:00 Rho(D) Type Positive 02/17/23 09:00 Antibody Screen Negative 02/17/23 09:00 Vitals Last Vital Signs Temp 97.8 F 02/18/23 05:42 Pulse 66 02/18/23 05:42 Resp 16 02/18/23 05:42 BP 118/67 02/18/23 05:42 Pulse Ox 94 02/18/23 05:42 O2 Del Method Room Air 02/18/23 05:42 O2 Flow Rate 3 02/17/23 11:38 Results Labs OB ([facility]): Blood Type A Positive 02/17/23 Antibody Screen Negative 02/17/23 Hct 36.6 % (36-47) 02/18/23 Hgb 11.60 g/dL (11.27-16.99) 02/18/23 Rho(D) Type Positive 02/17/23 Plt Count 190 10^3/cmm (157-399) 02/18/23 Micro Urine Specimen 02/17/23 Discharge Plan Discharge Patient Disposition: Home Condition: Stable Prescriptions: New hydrocodone-acetaminophen 5-325 mg tablet 1 tab PO Q4H PRN (Reason: pain) Qty: 10 0RF acetaminophen 325 mg capsule 325 mg PO Q4H PRN (Reason: fever or pain) Qty: 60 0RF ibuprofen 800 mg tablet 800 mg PO TID PRN (Reason: pain) Qty: 60 0RF Continued cholecalciferol (vitamin D3) 25 mcg (1,000 unit) capsule 25 mcg PO DAILY vitamin B complex [B Complex-Vitamin B12] Tablet 1 tab PO DAILY aspirin [Adult Aspirin Regimen] 81 mg tablet,delayed release (DR/EC) 81 mg PO DAILY tramadol 50 mg tablet 50 mg PO Q6H PRN (Reason: pain) Qty: 90 5RF simvastatin 10 mg tablet 10 mg PO DAILY Qty: 30 11RF furosemide 40 mg tablet 40 mg PO BID Qty: 180 2RF magnesium oxide 400 mg magnesium capsule 400 mg PO DAILY Qty: 90 3RF temazepam 7.5 mg capsule 7.5 mg PO .qhs PRN (Reason: sleep) 30 Days Qty: 30 3RF fluoxetine [Prozac] 40 mg capsule 40 mg PO DAILY Qty: 30 3RF potassium chloride 10 mEq tablet extended release 10 meq PO DAILY Qty: 90 3RF metoprolol succinate 25 mg tablet extended release 24 hr 25 mg PO DAILY Qty: 90 3RF Discharge Orders: Discharge Order (Routine); Ordered 02/18/23 Ordered By: Alexys Joseph Referrals: Alexys Joseph MD [Physician] - Discharge Diet: Soft Mechanical Discharge Activity: Limit activity as instructed Patient Instructions: Opioid Safety, Posterior Vaginal Repair (GEN) Activity Restrictions/Additional Instructions: 1. Please call [facility] on next working day to make your post-operative appointment in 2 weeks. 2. Please stay home until you come back to the clinic on first post- hospatilization check up. 3. Please follow instructions on your medications CAREFULLY. 4. If you have abdominal incision, do not cover it unless dressing is necessary because of drainage. OK to shower, but avoid bath. Leave steri-strips until they fall off. If they are still on one week after surgery, you may remove them. 5. If you had vaginal surgery or vaginal repair, Dr. Joseph may instruct you to take SITZ bath. 6. Yellow, blood tinged odorous vaginal discharge is usually normal after hysterectomy or vaginal surgeries. 7. No SEXUAL INTERCOURSE, tampons, or douches until you are completely released from the post-operative care. 8. Avoid constipation by eating right and maybe using some Metamucil or Milk of Magnesia. 9. All prescription refills are given during the working hours. Please do no wait till it runs out. Call the clinic at [phone] before your medication runs out. The clinic will get in touch with your doctor to prescribe medications if necessary. 10. Please remain within 40 mile radius from our hospital because emergencies do happen now and then during the post-operative period. 11. If you have stairs at home, take one step at a time slowly and minimize the number of trips. It helps to stay in one floor for the next few days. No lifting except what you can lift by one hand until you are released from the post-operative care. 12. Driving is discouraged until you are well healed. It may be 3-4 weeks before you feel strong enough to drive. You should be able to turn and look through the rear window without pain and you should be able to push the brake pedal very hard without pain before you drive. No fast rules, but SAFETY should be your primary concern. DO NOT drive if you are on sedating medications such as narcotics. 13. Call the clinic (during working hours) to make urgent appointment or go to the Emergency room, if any of the following occurs: i. Vaginal bleeding becomes heavy, more than a period. ii. Incision becomes red and sore, or drains pus. iii. Your TEMPERATURE is over 100.4F or you have chill. iv. IV site becomes red and swollen (a little ``knot?? is usually OK) v. Persistent nausea and vomiting vi. Persistent constipation or diarrhea vii. Rash or allergic reaction to medications. Discharge Attestations [employer] Time Spent in Discharge Care*: greater than 30 min Coding Level of Care Code Acute Code for Chg Fwd Diagnoses
[2023-02-18] MEDS: ibuprofen 800 mg tablet PO (10:03)
[2023-02-18] MEDS: docusate sodium 100 mg Capsule PO (10:03)
[2023-02-18 10:10] VITALS: BP 109/64; PULSE 73; RESP 17; TEMP 36.4; O2SAT 94
== END 2023-02-18 10:15 | disposition home or self-care (01) ==
LOC: OBGYN 10:57
PROVIDERS: Admitting Provider Obstetrics & Gynecology; PCP Family Medicine; Visit Provider Obstetrics & Gynecology
PROC: (CPT 57250; 2023-02-17 09:20)
DX: N81.10 Cystocele, unspecified (principal); I25.10 Atherosclerotic heart disease of native coronary artery without angina pectoris; Z86.718 Personal history of other venous thrombosis and embolism; I10 Essential (primary) hypertension; M79.7 Fibromyalgia; Z79.82 Long term (current) use of aspirin; E78.2 Mixed hyperlipidemia; Z87.891 Personal history of nicotine dependence
CPT/HCPCS: 57250; 36415; 80053; 81001; 85025; 85027; 86850; 86900; 87086; G0378; J0131; J0690; J1100; J1650; J1885; J2405; J2704; J2710; J3010; J3490; J7030; J7121

== ENCOUNTER → 2023-07-23 11:08 | Outpatient (BNVA) | payer MEDICARE, MEDICAID, OTHER, SELFPAY | PROVIDERS: PCP Family Medicine; Visit Provider Family Medicine | DX: I10 Essential (primary) hypertension (principal); E78.2 Mixed hyperlipidemia; E11.9 Type 2 diabetes mellitus without complications | CPT/HCPCS: 80053; 80061; 84443; 85025 ==

== ENCOUNTER 2023-12-07 13:57 | Outpatient (CLI) | payer MEDICARE, MEDICAID, SELFPAY ==
--- NOTE | 2023-12-07 14:01 | XR_ITS ---
WS: [email or web address] Exam: XR cervical spine 3V* [id number] Date/Time of Exam: 12/07/2023 2:01 PM Reason For Exam: neck pain No acute fracture or dislocation. Marked facet arthropathy at all levels. Degenerative disc narrowing from C5-C7. Paraspinal soft tissues are unremarkable. The odontoid is intact. IMPRESSION1. Advanced degenerative changes as above. 2. No fracture or malalignment.
--- NOTE | 2023-12-07 14:01 | XR_ITS ---
WS: [email or web address] Exam: XR lumbar spine 2-3V* [id number] Date/Time of Exam: 12/07/2023 2:01 PM Reason For Exam: low back pain No acute fracture. There is spondylosis. There is angular thoracolumbar scoliosis with LEFT convexity . Degenerative disc changes at all levels. Facet DJD at all levels. XR/XR lumbar spine 2-3V* [id number] IMPRESSION: 1. No acute fracture or malalignment. 2. Moderately advanced degenerative changes and angular levoscoliosis.
--- NOTE | 2023-12-07 14:01 | XR_ITS ---
WS: [email or web address] Exam: XR thoracic spine 2V [id number] Date/Time of Exam: 12/07/2023 2:01 PM Reason For Exam: back pain No acute fracture or dislocation. There is spondylosis. There is angular dextroscoliosis measuring ab out 36 degrees. Normal paraspinal soft tissues. Mild degenerative disc narrowing at all levels. XR/XR thoracic spine 2V [id number] IMPRESSION: 1. Degenerative changes and angular dextroscoliosis as above. No fracture or ot her significant finding.
== END 2023-12-07 13:58 | disposition home or self-care (01) ==
LOC: RAD 14:00
PROVIDERS: PCP Family Medicine; Visit Provider Family Medicine
DX: M47.814 Spondylosis without myelopathy or radiculopathy, thoracic region (principal); M41.35 Thoracogenic scoliosis, thoracolumbar region; M51.36 Other intervertebral disc degeneration, lumbar region; M41.86 Other forms of scoliosis, lumbar region; M47.892 Other spondylosis, cervical region
CPT/HCPCS: 72040; 72070; 72100

== ENCOUNTER → 2024-01-21 10:27 | Outpatient (BNVA) | payer MEDICARE, MEDICAID, SELFPAY | PROVIDERS: PCP Family Medicine; Visit Provider Family Medicine | DX: M54.2 Cervicalgia (principal); I10 Essential (primary) hypertension; F41.9 Anxiety disorder, unspecified | CPT/HCPCS: 80053; 80061 ==

== ENCOUNTER 2024-02-24 09:16 | Outpatient (CLI) | payer MEDICARE, MEDICAID, SELFPAY ==
--- NOTE | 2024-02-24 09:30 | CT_ITS ---
WS: [id number] CT CERVICAL SPINE HISTORY: arm pain/ neck pain TECHNIQUE: Contiguous 2.0 mm axial imaging performed through the entire cervical spine. Sagittal and coronal reformats also performed. All CT scans at [facility] use at least one of these dose o ptimization techniques: automated exposure control; mA and/or kV adjustment per patient size (include s targeted exams where dose is matched to clinical indication); or iterative reconstruction. DLP: 156.77 mGy.cm COMPARISON: None available. Mild RIGHT curvature and increase in the lordosis of the cervical spine. C5 anterolisthesis by 2 mm. Disc spaces are narrowed. Facet joints are normally aligned. Very slight loss of superior endplate at C4. No definite fracture is identified. No acute fractures seen. Craniocervical junction is normal. Lateral masses of C1 and C2 align. The odontoid is intact. C2-C3: Normal. C3-C4: Small osteophytes. No stenosis. C4-C5: Normal. C5-C6: Mild osteophytic ridging. Mild LEFT foraminal stenosis. C6-C7: Mild osteophytic ridging. Mild bilateral foraminal stenosis. C7-T1: Normal. Emphysema at the lung apices. CT/CT cervical spin wo con* [id number] IMPRESSION: 1. No acute cervical spine fracture. 2. Very slight anterior wedging of C4. No acute fracture line identified. 3. Mild degenerative curvature and increase in lordosis. 4. Mild LEFT foraminal narrowing at C5-6 and bilaterally at C6-7.
== END 2024-02-24 09:17 | disposition home or self-care (01) ==
LOC: RAD 09:17
PROVIDERS: PCP Family Medicine; Visit Provider Family Medicine
DX: M43.12 Spondylolisthesis, cervical region (principal); M25.78 Osteophyte, vertebrae
CPT/HCPCS: 72125

== ENCOUNTER → 2024-07-21 10:20 | Outpatient (BNVA) | payer MEDICARE, MEDICAID, SELFPAY | PROVIDERS: PCP Family Medicine; Visit Provider Family Medicine | DX: F41.9 Anxiety disorder, unspecified (principal); F32.9 Major depressive disorder, single episode, unspecified; I10 Essential (primary) hypertension; E78.2 Mixed hyperlipidemia | CPT/HCPCS: 80053; 80061; 85025 ==

== ENCOUNTER → 2024-09-15 09:32 | Outpatient (BNVA) | payer MEDICARE, MEDICAID, SELFPAY | PROVIDERS: PCP Family Medicine; Visit Provider Family Medicine | DX: R51.9 Headache, unspecified (principal); G89.29 Other chronic pain | CPT/HCPCS: 85651; 86140 ==

== ENCOUNTER 2024-09-21 07:36 | Outpatient (CLI) | payer MEDICARE, MEDICAID, SELFPAY ==
--- NOTE | 2024-09-21 08:00 | CT_ITS ---
WS: [id number] CT HEAD WITH AND WITHOUT CONTRAST HISTORY: headaches worsening TECHNIQUE: Noncontrast 2.5 mm axial images obtained from the vertex to the skull base. Additional imaging performed at 2.5 mm axial images status post IV contrast. Bone and soft tissue windows are reviewed. All CT scans at [facility] use at least one of these dose optimization techniques: automated exposure control; mA and/or kV adjustment per patient size (includes targeted exams where dose is matched to clinical indication); or iterative reconstruction. CONTRAST: Omnipaque 350; 100 mL IV. DLP: 1947.20 mGy.cm COMPARISON: None available. No acute intracranial hemorrhage, edema or midline shift. Mild symmetric atrophy and small vessel disease. No prior infarct. No edema or mass effect. No enhancing mass or vascular malformations identified. Moderate calcified plaque in the carotid cavernous sinus is. No obstruction. Dural venous sinuses are normally enhancing. Paranasal sinuses as visualized: Clear. Mastoid air cells: Clear. Calvarium and scalp: Intact. CT/CT head wo/w con [id number] IMPRESSION: 1. No acute intracranial hemorrhage or edema. 2. No enhancing mass or vascular malformation. 3. Mild cerebral atrophy and small vessel disease. No large territory infarct.
[2024-09-21 08:09] LABS: Blood Urea Nitrogen 23 mg/dL (8-23)
[2024-09-21] MEDS: iohexol 350 mg/mL 500 mL Btl (per mL) IV (08:20)
== END 2024-09-21 07:37 | disposition home or self-care (01) ==
PROVIDERS: PCP Family Medicine; Visit Provider Family Medicine
DX: R51.9 Headache, unspecified (principal); G89.29 Other chronic pain; G31.89 Other specified degenerative diseases of nervous system; I67.89 Other cerebrovascular disease; I65.23 Occlusion and stenosis of bilateral carotid arteries
CPT/HCPCS: 70470; 82565; 84520

== ENCOUNTER → 2024-09-28 10:40 | Outpatient (BNVA) | payer MEDICARE, MEDICAID, SELFPAY | PROVIDERS: PCP Family Medicine; Visit Provider Family Medicine | DX: R51.9 Headache, unspecified (principal); G89.29 Other chronic pain | CPT/HCPCS: 85651; 86140 ==